=== PATIENT | female | born 1995 | race Caucasian/White ===

== ENCOUNTER 2018-08-26 12:07 | Emergency (ER) | payer OTHER, BC ==
[~2018-08-26] VITALS: Ht 154.9 cm; Wt 58.1 kg
--- NOTE | 2018-08-26 12:15 | NUR ---
CARLOS 89 [facility] FOR SYNCOPAL EPISODE AFTER PATIENT WAS GIVEN A SHOT, IG=[phone]
[2018-08-26] MEDS ORDERED: ACETAMINOPHEN ES 500 MG TABLET PO ONE (12:30)
[2018-08-26] MEDS ORDERED: ACETAMINOPHEN ES 500 MG TABLET ONE (12:43)
[2018-08-26 12:53] LABS: BASOPHILS # (AUTO) 0.1 /CMM (0.0-0.2); BASOPHILS % (AUTO) 1.2 % (0.0-2.0); EOSINOPHILS % (AUTO) 0.4 % (0.0-6.0); HEMATOCRIT 40 % (33-45); HEMOGLOBIN 13.6 g/dL (11.5-14.8); LYMPHOCYTES # (AUTO) 1.1 /CMM (0.8-4.8); LYMPHOCYTES % (AUTO) 13.3 % (20.0-44.0); MEAN CORPUSCULAR HGB CONC 34 g/dl (31.0-36.0); MEAN CORPUSCULAR VOLUME 88 fL (82-100); MONOCYTES # (AUTO) 0.2 /CMM (0.1-1.30); MONOCYTES % (AUTO) 2.8 % (2.0-12.0); NEUTROPHILS % (AUTO) 82.3 % (43.0-81.0); PLATELET COUNT (AUTO) 322 /CMM (150-450); RED BLOOD CELL COUNT(AUTO) 4.58 MIL/uL (4.0-5.2); WHITE BLOOD COUNT (AUTO) 8.4 K/uL (4.3-11.0)
--- NOTE | 2018-08-26 15:35 | NUR ---
Patient discharged to home in stable condition. Written and verbal after care instructions given. Patient verbalizes understanding of instruction. VSS.
[2018-08-26 15:36] VITALS: BP 124/78
== END 2018-08-26 15:45 | disposition home or self-care (01) ==
LOC: ER 12:10
DX: S06.0X0A Concussion without loss of consciousness, initial encounter (principal); R55 Syncope and collapse; J03.90 Acute tonsillitis, unspecified; W18.09XA Striking against other object with subsequent fall, initial encounter; Y93.89 Activity, other specified; Y92.89 Other specified places as the place of occurrence of the external cause; Y99.8 Other external cause status
CPT/HCPCS: 36415; 70450-TC; 84703-TC; 85025-TC; A4606; Z7610

== ENCOUNTER 2023-04-08 10:16 | Outpatient (CLI) | payer SELFPAY | END 2023-04-08 23:59 | disposition home or self-care (01) | LOC: WOU 10:16 | PROVIDERS: ATTEND Podiatrist Foot & Ankle Surgery | DX: L60.0 Ingrowing nail (principal); M79.675 Pain in left toe(s) | CPT/HCPCS: G0463 ==